=== PATIENT | male | born 1965 | race Caucasian/White ===

== ENCOUNTER 2018-04-12 07:03 | Outpatient (CLI) | payer BC ==
--- NOTE | 2018-04-12 07:48 | ULT ---
RIGHT UPPER QUADRANT ABDOMINAL ULTRASOUND: Date: 04/12/18 HISTORY: Right upper quadrant abdominal pain. TECHNIQUE: Multiplanar Villar scale and color Doppler images were obtained in a right upper quadrant abdominal ult rasound. FINDINGS: The liver is normal in echogenicity without focal lesions or intrahepatic ductal dilatation. The gall bladder is normal without stones sludge, gallbladder wall thickening, or pericholecystic fluid. The c ommon bile duct is normal, measuring 4.0 mm. The visualized portions of the pancreas are unremarkable. The right kidney is normal in echogenicity without hydronephrosis or calculus and measures 12.0 cm in length. IMPRESSION: Unremarkable exam. POS: [facility]
== END 2018-04-12 07:04 | disposition home or self-care (01) ==
LOC: SCSULT 07:03
PROVIDERS: ATTEND Internal Medicine Gastroenterology
DX: R10.11 Right upper quadrant pain (principal); K21.9 Gastro-esophageal reflux disease without esophagitis; R13.19 Other dysphagia; Z12.11 Encounter for screening for malignant neoplasm of colon
CPT/HCPCS: 76705